=== PATIENT | female | born 1975 ===

== ENCOUNTER 2017-08-20 07:00 | Day surgery (SDC) | payer OTHER ==
[~2017-08-20 07:00] MED LIST: ATIVAN1 MG PO; CARAFATE1 GM PO; CYMBALTA60 MG PO; ESTRADIOL0.5 MG PO; PROTONIX40 MG PO; RESTORIL30 M1 PO
== END 2017-08-20 13:00 | disposition home or self-care (01) ==
LOC: SURH 07:00 → EDSTATUS 07:00 → CIR.AMB 07:00 → EDSTATUS 09:17 → SURH 09:21 → CIR.AMB 13:00 → O/R 15:50 → CIR.AMB 19:53
DX: N62 Hypertrophy of breast (principal)